=== PATIENT | male | born 1940 | race Caucasian/White ===

== ENCOUNTER 2017-06-27 12:49 | Inpatient (IN) | payer MEDICARE ==
[~2017-06-27] VITALS: Ht 188 cm; Wt 98.4 kg
[2017-06-27] MEDS ORDERED: NITROGLYCERIN SINGLE TAB 0.4 MG SL ONE (13:28)
[2017-06-27] MEDS ORDERED: SODIUM CHLORIDE FLUSH 10ML SYR IVF ONE (13:30)
[2017-06-27] MEDS ORDERED: ASPIRIN 81 MG TABLET CHEW PO ONE (13:30)
[2017-06-27] MEDS: NITROGLYCERIN SINGLE TAB 0.4 MG SL PRN ×3 (13:30→13:42)
[2017-06-27 13:35] LABS: HEMATOCRIT 52.1 % (39.2-51.8); HEMOGLOBIN 17.4 g/dL (13.7-18.0); WHITE BLOOD COUNT 7.3 x10^3/uL (3.4-10)
[2017-06-27 13:48] LABS: BLOOD UREA NITROGEN 17 mg/dL (7-18)
[2017-06-27] MEDS ORDERED: CITA20TA5 PO (13:58)
[2017-06-27] MEDS ORDERED: FESO4TAB PO (13:58)
[2017-06-27] MEDS ORDERED: SAXA1TBM2 PO (13:58)
[2017-06-27] MEDS ORDERED: ACET325T14 PO (13:58)
[2017-06-27] MEDS ORDERED: LEVO50TA5 PO (13:58)
[2017-06-27] MEDS ORDERED: ATOR40TA78 PO (13:58)
[2017-06-27] MEDS ORDERED: PREG75CA PO (13:58)
[2017-06-27] MEDS ORDERED: ASPI-496 PO (13:58)
[2017-06-27] MEDS ORDERED: LOSA25TA5 PO (13:58)
[2017-06-27] MEDS ORDERED: FOLI-17 PO (13:58)
[2017-06-27] MEDS ORDERED: CHOL200024 PO (13:58)
[2017-06-27] MEDS ORDERED: SODIUM CHLORIDE FLUSH 10ML SYR IVF PRN (15:00)
[2017-06-27] MEDS ORDERED: SODIUM CHLORIDE 0.9% 1,000 ML IV SCH (15:16)
[2017-06-27] MEDS ORDERED: ENALAPRILAT 1.25 MG/ML, 2ML IVPush PRN (15:30)
[2017-06-27] MEDS ORDERED: morphine SULFATE 10 MG/ML, 1ML IVPush PRN (15:30)
[2017-06-27] MEDS ORDERED: ONDANSETRON 2MG/ML, 2ML IVPush PRN (15:30)
[2017-06-27] MEDS ORDERED: HYDROcodone/APAP 5/325 TABLET PO PRN (15:30)
[2017-06-27] MEDS ORDERED: ACETAMINOPHEN 325 MG TABLET PO PRN (15:30)
[2017-06-27] MEDS ORDERED: ENOXAPARIN 40 MG/0.4 ML SQ SCH (15:30)
[2017-06-27] MEDS ORDERED: DOCUSATE 100 MG CAPSULE PO PRN (15:30)
[2017-06-27] MEDS ORDERED: POLYETHYLENE GLYCOL 17 GM PACKET PO PRN (15:30)
[2017-06-27] MEDS ORDERED: BISACODYL 10 MG SUPP PR PRN (15:30)
[2017-06-27] MEDS ORDERED: ENOXAPARIN 40 MG/0.4 ML ONE (16:32)
[2017-06-27 18:02] VITALS: BP 152/95
[2017-06-27 18:32] LABS: IS PT STATUS REG ER OR PRE ER? NO
[2017-06-27 19:22] VITALS: BP 152/80
[2017-06-27] MEDS ORDERED: HEPARIN 5,000 UNITS/ML, 1ML IV ONE (20:30)
[2017-06-27] MEDS ORDERED: HEPARIN 5,000 UNITS/ML, 1ML IV PRN (20:30)
[2017-06-27] MEDS ORDERED: HEPARIN 25,000 UNITS/500ML PMX 500 ML IV PRN (20:30)
[2017-06-27] MEDS: METFORMIN HCL HOMEMEDPO SCH (21:00)
[2017-06-27] MEDS: SAXAGLIPTIN HCL HOMEMEDPO SCH (21:00)
[2017-06-27] MEDS ORDERED: FLU VACC QS2017-18 (36MOS+) UP/PF 0.5 ML IM-VACC ONE (21:30)
[2017-06-27] MEDS: OXYBUTYNIN CHLORIDE 5 MG TABLET PO SCH (21:47)
[2017-06-27] MEDS: PREGABALIN 75 MG CAPSULE PO SCH (21:47)
[2017-06-27] MEDS: ATORVASTATIN 40 MG TABLET PO SCH (21:47)
[2017-06-28 00:31] LABS: IS PT STATUS REG ER OR PRE ER? NO
[2017-06-28 00:58] VITALS: BP 151/79
[2017-06-28 05:13] LABS: BLOOD UREA NITROGEN 18 mg/dL (7-18)
[2017-06-28] MEDS: SAXAGLIPTIN HCL HOMEMEDPO SCH (08:09)
[2017-06-28] MEDS: METFORMIN HCL HOMEMEDPO SCH (08:09)
[2017-06-28] MEDS: LEVOTHYROXINE 50 MCG TABLET PO SCH (08:23)
[2017-06-28 08:26] VITALS: BP 154/98
[2017-06-28] MEDS: SODIUM CHLORIDE 0.9% 1,000 ML IV SCH ×5 (08:39→22:21)
[2017-06-28] MEDS: CHOLECALCIFEROL 1,000 UNIT TABLET PO SCH (08:40)
[2017-06-28] MEDS: OXYBUTYNIN CHLORIDE 5 MG TABLET PO SCH ×2 (08:40→20:26)
[2017-06-28] MEDS: CITALOPRAM 20 MG TABLET PO SCH (08:40)
[2017-06-28] MEDS: PREGABALIN 75 MG CAPSULE PO SCH ×2 (08:40→20:26)
[2017-06-28] MEDS: ASPIRIN 81 MG TABLET EC PO SCH (08:41)
[2017-06-28] MEDS: FOLIC ACID 1 MG TABLET PO SCH (08:41)
[2017-06-28] MEDS: LOSARTAN 25MG TABLET PO SCH (08:42)
[2017-06-28 13:02] VITALS: BP 144/79
[2017-06-28] MEDS ORDERED: MIDAZOLAM 1 MG/ML, 5ML ONE (13:59)
[2017-06-28] MEDS ORDERED: BIVALIRUDIN 250 MG ONE (14:00)
[2017-06-28] MEDS ORDERED: VERAPAMIL 2.5 MG/ML, 2ML ONE (14:00)
[2017-06-28] MEDS ORDERED: TICAGRELOR 90 MG TABLET ONE (14:00)
[2017-06-28] MEDS ORDERED: LIDOCAINE 2%, 20ML ONE (14:00)
[2017-06-28] MEDS ORDERED: FENTANYL PF 100 MCG/2ML ONE (14:00)
[2017-06-28] MEDS ORDERED: HEPARIN 1,000 UNITS/ML, 10ML ONE (14:00)
[2017-06-28 19:43] VITALS: BP 115/67
[2017-06-28] MEDS: TICAGRELOR 90 MG TABLET PO SCH (20:26)
[2017-06-28] MEDS: ATORVASTATIN 40 MG TABLET PO SCH (20:26)
[2017-06-29 01:17] VITALS: BP 146/72
[2017-06-29] MEDS: SODIUM CHLORIDE 0.9% 1,000 ML IV SCH (03:15)
[2017-06-29] MEDS: PREGABALIN 75 MG CAPSULE PO SCH (08:07)
[2017-06-29] MEDS: OXYBUTYNIN CHLORIDE 5 MG TABLET PO SCH (08:08)
[2017-06-29] MEDS: CITALOPRAM 20 MG TABLET PO SCH (08:08)
[2017-06-29] MEDS: ASPIRIN 81 MG TABLET EC PO SCH (08:08)
[2017-06-29] MEDS: CHOLECALCIFEROL 1,000 UNIT TABLET PO SCH (08:08)
[2017-06-29] MEDS: LOSARTAN 25MG TABLET PO SCH (08:08)
[2017-06-29] MEDS: TICAGRELOR 90 MG TABLET PO SCH (08:08)
[2017-06-29] MEDS: FOLIC ACID 1 MG TABLET PO SCH (08:08)
[2017-06-29] MEDS: LEVOTHYROXINE 50 MCG TABLET PO SCH (08:09)
[2017-06-29] MEDS ORDERED: ISOSORBIDE MONONITRATE ER 30 MG TABLET PO SCH (09:00)
[2017-06-29 09:45] VITALS: BP 122/85
[2017-06-29] MEDS ORDERED: CLOP75TA PO (13:25)
[2017-06-29 14:56] VITALS: BP 132/75
[2017-06-29] MEDS ORDERED: METO25TA35 PO (16:23)
[2017-06-30] MEDS ORDERED: CLOPIDOGREL 75 MG TABLET PO SCH (09:00)
== END 2017-06-29 17:38 | disposition home or self-care (01) | DRG 280 ==
LOC: ED 14:31 → EDIP 14:32 → OBSVTOIN 14:32 → INTOOBSV 14:32 → ED 14:56 → 5SO 17:26
PROVIDERS: ADMIT Family Medicine; ATTEND Family Medicine
PROC: 4A023N7 Measurement of Cardiac Sampling and Pressure, Left Heart, Percutaneous Approach (ICD-10-PCS; principal; 2017-06-28)
PROC: B2111ZZ Fluoroscopy of Multiple Coronary Arteries using Low Osmolar Contrast (ICD-10-PCS; 2017-06-28)
DX: I21.4 Non-ST elevation (NSTEMI) myocardial infarction (principal); I50.31 Acute diastolic (congestive) heart failure; E11.65 Type 2 diabetes mellitus with hyperglycemia; I11.0 Hypertensive heart disease with heart failure; E03.9 Hypothyroidism, unspecified; E78.00 Pure hypercholesterolemia, unspecified; E78.5 Hyperlipidemia, unspecified; I25.119 Atherosclerotic heart disease of native coronary artery with unspecified angina pectoris; Z82.3 Family history of stroke; Z82.49 Family history of ischemic heart disease and other diseases of the circulatory system; Z83.3 Family history of diabetes mellitus; Z85.46 Personal history of malignant neoplasm of prostate; Z87.891 Personal history of nicotine dependence; Z85.72 Personal history of non-Hodgkin lymphomas
CPT/HCPCS: 36415; 71010; 80048; 80061; 82040; 83880; 84484; 85025; 85379; 85520; 85610; 85730; 90686; 93005; 93306; 93458; 96360; 96372; 99156; C1769; C1894; J0583; J1644; J1650; J2250; J3010; J3490; J7030; Q9967

== ENCOUNTER → 2017-10-26 | Outpatient (CLI) | payer MEDICARE ==
[~2017-10-26] MED LIST: ACET325T14 PO; ASPI-496 PO; ATOR40TA78 PO; CHOL200024 PO; CITA20TA5 PO; CLOP75TA PO; FESO4TAB PO; FOLI-17 PO; LEVO50TA5 PO; LOSA25TA5 PO; METO25TA35 PO; PREG75CA PO; SAXA1TBM2 PO
== END ==
LOC: PETCFH 09:04
PROVIDERS: ATTEND Internal Medicine Hematology & Oncology
DX: C84.70 Anaplastic large cell lymphoma, ALK-negative, unspecified site (principal)
CPT/HCPCS: 78815; A9552

== ENCOUNTER 2018-07-04 11:22 | Inpatient (IN) | payer MEDICARE ==
[~2018-07-04] VITALS: Ht 185.4 cm; Wt 101.2 kg
[~2018-07-04 11:22] MED LIST changes: -CITA20TA5 PO; +CITA20TA6 PO; +FOLIC ACID 1 MG TABLET PO ONE; -LOSA25TA5 PO; +LOSA25TA6 PO
[2018-07-04] MEDS ORDERED: ASPI-515 PO (11:43)
[2018-07-04] MEDS ORDERED: CITA20TA9 PO (11:44)
[2018-07-04 11:48] LABS: BASOPHILS # (AUTO) 0.04 x10^3/uL (0-0.1); BASOPHILS % (AUTO) 1 % (0-1); EOSINOPHILS # (AUTO) 0.25 x10^3/uL (0-0.4); EOSINOPHILS % (AUTO) 4 % (1-7); LYMPHOCYTES # (AUTO) 2.36 x10^3/uL (1-3.4); LYMPHOCYTES % (AUTO) 34 % (22-44); MD NO; MEAN CORPUSCULAR HEMOGLOBIN 31.4 pg (27.5-34.5); MEAN CORPUSCULAR HGB CONC 33.1 g/dL (33.2-36.2); MEAN CORPUSCULAR VOLUME 94.7 fL (81-97); MEAN PLATELET VOLUME 7.9 fL (7.4-10.4); MONOCYTES # (AUTO) 0.79 x10^3/uL (0.2-0.8); MONOCYTES % (AUTO) 12 % (2-9); NEUTROPHILS # (AUTO) 3.41 x10^3/uL (1.8-6.8); NEUTROPHILS % (AUTO) 50 % (42-75); PLATELET COUNT 157 x10^3/uL (130-400); RED BLOOD COUNT 5.47 x10^6/uL (4.38-5.82); RED CELL DISTRIBUTION WIDTH 14.7 % (9.4-14.8)
[2018-07-04] MEDS ORDERED: CHOL200074 PO (11:49)
[2018-07-04] MEDS ORDERED: FOLI-17 PO (11:49)
[2018-07-04] MEDS ORDERED: SAXA1TBM2 PO (11:50)
[2018-07-04] MEDS ORDERED: LOSA25TA6 PO (11:51)
[2018-07-04] MEDS ORDERED: PREG75CA PO (11:52)
[2018-07-04] MEDS ORDERED: FESO4TAB PO (11:53)
[2018-07-04] MEDS ORDERED: LEVO88TA4 PO (11:54)
[2018-07-04] MEDS ORDERED: AZEL23SP NAS (11:55)
[2018-07-04] MEDS ORDERED: UBID100C24 PO (11:56)
[2018-07-04] MEDS ORDERED: ATOR20TA9 PO (11:56)
[2018-07-04 11:58] LABS: ANION GAP 5 mmol/L (5-15); CALCIUM 9.3 mg/dL (8.5-10.1); CHLORIDE 103 mmol/L (98-107)
[2018-07-04] MEDS ORDERED: ASPIRIN 81 MG TABLET CHEW PO ONE (12:00)
[2018-07-04] MEDS ORDERED: NITROGLYCERIN SINGLE TAB 0.4 MG SL PRN (12:00)
[2018-07-04 12:03] LABS: CREATININE 1.21 mg/dL (0.7-1.3)
[2018-07-04] MEDS ORDERED: NITROGLYCERIN SINGLE TAB 0.4 MG SL ONE (12:15)
[2018-07-04] MEDS ORDERED: ASPIRIN 81 MG TABLET CHEW ONE (12:15)
[2018-07-04] MEDS ORDERED: SODIUM CHLORIDE 0.9% 1,000 ML IV SCH (12:59)
[2018-07-04] MEDS ORDERED: ONDANSETRON 2MG/ML, 2ML IVPush PRN (13:00)
[2018-07-04] MEDS ORDERED: POLYETHYLENE GLYCOL 17 GM PACKET PO PRN (13:00)
[2018-07-04] MEDS ORDERED: ACETAMINOPHEN 325 MG TABLET PO PRN (13:00)
[2018-07-04] MEDS ORDERED: DOCUSATE 100 MG CAPSULE PO PRN (13:00)
[2018-07-04] MEDS ORDERED: MORPHINE SULFATE 4 MG/ML, 1ML IVPush PRN (13:00)
[2018-07-04] MEDS ORDERED: HYDROcodone/APAP 5/325 TABLET PO PRN (13:00)
[2018-07-04 13:07] VITALS: BP 168/76
[2018-07-04] MEDS ORDERED: HEPARIN 5,000 UNITS/ML, 1ML IV ONE (14:00)
[2018-07-04] MEDS ORDERED: HEPARIN 5,000 UNITS/ML, 1ML IV PRN (14:00)
[2018-07-04] MEDS ORDERED: HEPARIN 25,000 UNITS/500ML PMX 500 ML IV PRN (14:00)
[2018-07-04] MEDS: INSULIN LISPRO 100 UNITS/ML, PEN SQ-INSULIN SCH ×2 (17:25→21:06)
[2018-07-04 19:07] VITALS: BP 152/67
[2018-07-04] MEDS: PREGABALIN 75 MG CAPSULE PO SCH (20:54)
[2018-07-04] MEDS ORDERED: FLUTICASONE NAS SCH (21:00)
[2018-07-04] MEDS ORDERED: ATORVASTATIN 20 MG TABLET PO SCH (21:00)
[2018-07-04] MEDS ORDERED: AZELASTINE NAS SCH (21:00)
[2018-07-05 01:14] VITALS: BP 139/59
[2018-07-05 05:55] LABS: TROPONIN I 0.072 ng/mL (0.000-0.045)
[2018-07-05] MEDS ORDERED: ASPIRIN 325 MG TABLET EC PO SCH (06:00)
[2018-07-05] MEDS ORDERED: LEVOTHYROXINE 88 MCG TABLET PO SCH (06:00)
[2018-07-05] MEDS ORDERED: SODIUM CHLORIDE 0.9% 1,000 ML IV ONE (08:32)
[2018-07-05] MEDS: SENNA/DOCUSATE TABLET PO SCH ×2 (08:45→09:00)
[2018-07-05] MEDS: PREGABALIN 75 MG CAPSULE PO SCH ×2 (08:45→09:00)
[2018-07-05] MEDS: CITALOPRAM 20 MG TABLET PO SCH ×2 (08:45→09:00)
[2018-07-05] MEDS: LOSARTAN 25MG TABLET PO SCH ×2 (08:45→09:00)
[2018-07-05] MEDS: INSULIN LISPRO 100 UNITS/ML, PEN SQ-INSULIN SCH (08:46)
[2018-07-05] MEDS ORDERED: METFORMIN HCL HOMEMEDPO SCH (09:00)
[2018-07-05] MEDS ORDERED: FESOTERODINE FUMARATE PO SCH (09:00)
[2018-07-05] MEDS ORDERED: SAXAGLIPTIN HCL HOMEMEDPO SCH (09:00)
[2018-07-05 09:21] VITALS: BP 146/81
[2018-07-05] MEDS ORDERED: ISOSORBIDE MONONITRATE ER 30 MG TABLET PO SCH (10:30)
[2018-07-05] MEDS ORDERED: CLOPIDOGREL 75 MG TABLET PO SCH (10:30)
[2018-07-05] MEDS ORDERED: ISOS30TA8 PO (10:46)
[2018-07-05] MEDS ORDERED: CLOP75TA PO (10:46)
[2018-07-06] MEDS ORDERED: ASPIRIN 81 MG TABLET EC PO SCH (06:00)
== END 2018-07-05 11:55 | disposition home or self-care (01) | DRG 313 ==
LOC: MERGE 11:22 → SUATTDRO 12:37 → ED 12:45 → 5SO 12:59 → DCLOUNGE 07-05 11:40
PROVIDERS: ADMIT Family Medicine; ATTEND Family Medicine
DX: R07.89 Other chest pain (principal); I25.110 Atherosclerotic heart disease of native coronary artery with unstable angina pectoris; D75.1 Secondary polycythemia; E03.9 Hypothyroidism, unspecified; E11.9 Type 2 diabetes mellitus without complications; E78.5 Hyperlipidemia, unspecified; G47.33 Obstructive sleep apnea (adult) (pediatric); I10 Essential (primary) hypertension; Z82.49 Family history of ischemic heart disease and other diseases of the circulatory system; I25.2 Old myocardial infarction; Z85.46 Personal history of malignant neoplasm of prostate; Z87.891 Personal history of nicotine dependence
CPT/HCPCS: 36415; 71045; 80048; 82040; 82962; 84484; 85025; 85520; 93005; 99285; G0378; J1644; J1815; J7030

== ENCOUNTER → 2019-08-28 | Outpatient (CLI) | payer MEDICARE ==
[~2019-08-28] MED LIST changes: +ASPI-515 PO; +ATOR20TA37 PO; +AZEL23SP NAS; +CHOL200074 PO; +CITA20TA9 PO; -FOLIC ACID 1 MG TABLET PO ONE; +ISOS30TA8 PO; +LEVO88TA4 PO; +LOSA25TA25 PO; -LOSA25TA6 PO; +UBID100C24 PO
== END | disposition home or self-care (01) ==
LOC: RAD 10:01
PROVIDERS: ATTEND Internal Medicine Geriatric Medicine
CPT/HCPCS: 78264 ×2; A9541

== ENCOUNTER → 2019-11-14 | Outpatient (CLI) | payer OTHER | END | disposition home or self-care (01) | LOC: CVU 15:35 | PROVIDERS: ATTEND Orthopaedic Surgery | DX: I08.2 Rheumatic disorders of both aortic and tricuspid valves (principal); I25.10 Atherosclerotic heart disease of native coronary artery without angina pectoris | CPT/HCPCS: 93306 ==

== ENCOUNTER 2020-10-23 14:45 | Outpatient (CLI) | payer MEDICARE ==
[~2020-10-23 14:45] MED LIST changes: -ASPI-515 PO; +ASPI-963 PO; -FOLI-17 PO; +FOLI1TAB32 PO
== END 2020-10-23 23:59 | disposition home or self-care (01) ==
LOC: CVU 14:45
PROVIDERS: ATTEND Internal Medicine Cardiovascular Disease
DX: I65.23 Occlusion and stenosis of bilateral carotid arteries (principal); I70.0 Atherosclerosis of aorta; I10 Essential (primary) hypertension; I25.10 Atherosclerotic heart disease of native coronary artery without angina pectoris; I71.4 Abdominal aortic aneurysm, without rupture; E78.2 Mixed hyperlipidemia
CPT/HCPCS: 93880; 93978